=== PATIENT | male | born 1975 | race Caucasian/White ===

== ENCOUNTER 2018-03-15 21:34 | Emergency (ER) | payer OTHER ==
--- NOTE | 2018-03-15 22:38 | RAD ---
CHEST ONE VIEW: 03/15/18 HISTORY: Dyspnea. FINDINGS: Dextroscoliosis of the thoracic vertebral column. Heart size is normal. The lungs are clear. IMPRESSION: No acute intrathoracic disease. Thoracic spine scoliosis. POS: [facility]
== END 2018-03-15 23:15 | disposition home or self-care (01) ==
LOC: MADERS 21:34
DX: J11.1 Influenza due to unidentified influenza virus with other respiratory manifestations (principal); B34.9 Viral infection, unspecified; E11.9 Type 2 diabetes mellitus without complications; Z79.84 Long term (current) use of oral hypoglycemic drugs
CPT/HCPCS: 71045; 87804; 93005

== ENCOUNTER 2018-06-10 14:08 | Outpatient (CLI) | payer OTHER ==
--- NOTE | 2018-06-10 14:24 | RAD ---
Exam: Chest 2 views: HISTORY: Cough for 4 months COMPARISON: 03/15/2018 FINDINGS: Stable scoliosis. Heart size is normal. The lungs are clear. IMPRESSION: No acute intrathoracic disease. Stable from prior study.
== END 2018-06-10 14:09 | disposition home or self-care (01) ==
LOC: MADRAD 14:08
PROVIDERS: ATTEND Physician Assistant
DX: R05 Cough (principal)
CPT/HCPCS: 71046

== ENCOUNTER 2019-08-25 11:06 | Outpatient (CLI) | payer OTHER ==
--- NOTE | 2019-08-25 11:27 | RAD ---
EXAM: Chest 2 views: HISTORY: Cough for 2 years COMPARISON: 06/10/2018 FINDINGS: There is a normal-sized cardiomediastinal silhouette. There is no evidence of consolidation, mass, or pleural effusion. There is scoliotic curvature the spine. IMPRESSION: No evidence of acute cardiopulmonary disease
== END 2019-08-25 11:07 | disposition home or self-care (01) ==
LOC: MADRAD 11:06
PROVIDERS: ATTEND Physician Assistant
DX: R05 Cough (principal)
CPT/HCPCS: 71046

== ENCOUNTER 2019-11-19 12:08 | Emergency (ER) | payer OTHER ==
[2019-11-19 13:08] LABS: #Basophils 0.2 thou/uL (0.0-0.2); #Eosinphils 0.5 thou/uL (0.0-0.7); #Lymphocytes 1.3 thou/uL (1.20-3.40); #Monocytes 0.6 thou/uL (0.11-0.59); #Neutrophils 9.2 thou/uL (1.40-6.50); %Basophils 1.4 % (0.0-1.0); %Eosinophils 4.4 % (0.0-10.0); %Lymphocytes 11.3 % (21.0-51.0); %Monocytes 5.2 % (0.0-10.0); %Neutrophils 77.8 % (42.0-75.0); Hemoglobin 15.6 g/dL (14.0-18.0); Mean Corpuscular Volume 87.4 fL (78.0-98.0); Platelet Count 277 thou/uL (130-400); RBC Distribution Width 11.8 % (11.5-14.5); Red Blood Cell (RBC) Count 5.56 mill/uL (4.70-6.10); White Blood Cell (WBC) Count 11.8 thou/uL (4.8-10.8)
--- NOTE | 2019-11-19 13:19 | RAD ---
PORTABLE CHEST: Date: 11/19/2019 Time: 1303 hours HISTORY: Cough. FINDINGS: Comparison made with exam of 08/25/2019. The heart size is normal. The lungs are expanded without focal areas of consolidation, pneumothoraces , or pleural effusions. Scoliosis of the spine is again seen. IMPRESSION: No radiographic evidence of acute cardiopulmonary process. POS: [facility]
[2019-11-19 13:34] LABS: ALT (SGPT) 23 U/L (8-55); AST (SGOT) 14 U/L (5-34); Albumin 3.9 g/dL (3.5-5.0); Alkaline Phosphatase 66 U/L (40-110); Anion Gap 19 mmol/L (10-20); BUN (Urea Nitrogen) 18 mg/dL (8.9-20.6); Bilirubin, Total 0.9 mg/dL (0.2-1.2); CK (CPK) 198 U/L (30-200); Calc. Creatinine Clearance 0 mL/min (70-130); Calcium 9.1 mg/dL (7.8-10.44); Carbon Dioxide 25 mmol/L (22-29); Chloride 97 mmol/L (98-107); Estimated GFR-MDRD 56; Globulin 2.5 g/dL (2.4-3.5); Glucose 522 mg/dL (70-105); Potassium 4.6 mmol/L (3.5-5.1); Protein, Total 6.4 g/dL (6.0-8.3); Sodium 136 mmol/L (136-145)
[2019-11-19 13:35] LABS: CKMB 6.1 ng/mL (0-6.6)
[2019-11-19] MEDS ORDERED: Sodium Chloride 0.9% 1,000 ML ONE (13:50)
[2019-11-19] MEDS ORDERED: cefTRIAXone\\ROCEPHIN 2 GM VIAL ONE (13:50)
[2019-11-19] MEDS ORDERED: Sodium Chloride 0.9% 100 ML ONE (13:51)
[2019-11-19] MEDS ORDERED: Insulin Regular 300 UNITS/3 ML VIAL ONE (14:02)
== END 2019-11-19 15:22 | disposition short-term general hospital (02) ==
LOC: MADERS 12:08
DX: J40 Bronchitis, not specified as acute or chronic (principal); E11.65 Type 2 diabetes mellitus with hyperglycemia; I25.10 Atherosclerotic heart disease of native coronary artery without angina pectoris; R00.0 Tachycardia, unspecified; E78.5 Hyperlipidemia, unspecified; E78.00 Pure hypercholesterolemia, unspecified; Z79.84 Long term (current) use of oral hypoglycemic drugs; Z79.899 Other long term (current) drug therapy
CPT/HCPCS: 36416; 71045; 80053; 82550; 82553; 83880; 84443; 84484; 85025; 85379; 93005; 94760; 96365; 96375; J0696; J1815; J3490; J7050

== ENCOUNTER 2021-08-30 | Emergency (ER) | payer SELFPAY | END 2021-08-30 00:34 | disposition left against medical advice (07) | LOC: MADERS → EEVIPCON → MADERS 00:34 | DX: A41.9 Sepsis, unspecified organism (principal); L03.114 Cellulitis of left upper limb; E11.9 Type 2 diabetes mellitus without complications; F17.220 Nicotine dependence, chewing tobacco, uncomplicated | CPT/HCPCS: 99284 ==

== ENCOUNTER 2021-10-04 23:22 | Emergency (ER) | payer SELFPAY | END 2021-10-04 23:53 | disposition home or self-care (01) | LOC: MADERS 23:22 | DX: Z48.817 Encounter for surgical aftercare following surgery on the skin and subcutaneous tissue (principal); E11.9 Type 2 diabetes mellitus without complications; F17.220 Nicotine dependence, chewing tobacco, uncomplicated; I70.90 Unspecified atherosclerosis ==

== ENCOUNTER 2022-08-18 00:54 | Emergency (ER) | payer OTHER, SELFPAY ==
[2022-08-18] MEDS ORDERED: Furosemide 40 MG/4 ML VIAL ONE (01:41)
[2022-08-18 01:43] LABS: #Basophils 0.1 thou/uL (0.0-0.2); #Eosinphils 0.5 thou/uL (0.0-0.7); #Lymphocytes 1.6 thou/uL (1.20-3.40); #Monocytes 0.9 thou/uL (0.11-0.59); #Neutrophils 5.1 thou/uL (1.40-6.50); %Basophils 1.2 % (0.0-1.0); %Eosinophils 6.4 % (0.0-10.0); %Monocytes 10.5 % (0.0-10.0); %Neutrophils 61.9 % (42.0-75.0); Hemoglobin 13.9 g/dL (14.0-18.0); Mean Corpuscular HGB CONC 30.4 g/dL (32.0-36.0); Mean Corpuscular Hemoglobin 27.9 pg (27.0-31.0); Mean Corpuscular Volume 91.8 fl (78.0-98.0); Mean Platelet Volume 8.7 fL (7.4-10.4); Platelet Count 227 10x3/uL (130-400); RBC Distribution Width 15.8 % (11.5-14.5); Red Blood Cell (RBC) Count 4.98 mill/uL (4.70-6.10); White Blood Cell (WBC) Count 8.1 10x3/uL (4.8-10.8)
[2022-08-18 01:55] LABS: INR-International Normal Ratio 1.2; Prothrombin Time 15.2 sec (12.0-14.7)
[2022-08-18 02:05] LABS: ALT (SGPT) 27 U/L (8-55); AST (SGOT) 28 U/L (5-34); Albumin 3.7 g/dL (3.5-5.0); Alkaline Phosphatase 166 U/L (40-110); Anion Gap 15 mmol/L (10-20); BUN (Urea Nitrogen) 20 mg/dL (8.9-20.6); Bilirubin, Total 1.1 mg/dL (0.2-1.2); Calc. Creatinine Clearance 0 mL/min (70-130); Carbon Dioxide 26 mmol/L (22-29); Chloride 103 mmol/L (98-107); Estimated GFR 78; Globulin 2.7 g/dL (2.4-3.5); Glucose 286 mg/dL (70-105); PTT 29.5 sec (22.9-36.1); Potassium 4.3 mmol/L (3.5-5.1); Protein, Total 6.4 g/dL (6.0-8.3); Sodium 140 mmol/L (136-145)
[2022-08-18 02:29] LABS: CKMB 6.3 ng/mL (0-6.6)
[2022-08-18] MEDS ORDERED: Aspirin Chewable 81 MG TAB ONE (04:38)
[2022-08-18 05:24] LABS: Amphetamine Not Detected (NotDetected); Barbiturates Screen Not Detected (NotDetected); Benzodiazepine Screen Not Detected (NotDetected); Cocaine Metabolite Screen Not Detected (NotDetected); Methadone Not Detected (NotDetected); Methamphetamine Not Detected (NotDetected); Opiate Screen Not Detected (NotDetected); Oxycodone Screen Not Detected (NotDetected); Phencyclidine (PCP) Not Detected (NotDetected); THC/Cannabinoid Screen Not Detected (NotDetected); Tricyclic Screen Not Detected (NotDetected)
== END 2022-08-18 05:19 | disposition short-term general hospital (02) ==
LOC: MADERS 00:54
DX: I50.9 Heart failure, unspecified (principal); R79.89 Other specified abnormal findings of blood chemistry; E11.9 Type 2 diabetes mellitus without complications; F17.220 Nicotine dependence, chewing tobacco, uncomplicated
CPT/HCPCS: 71045; 80053; 80306; 82553; 83880; 84484; 85025; 85610; 85730; 93005; 96374; J1940

== ENCOUNTER 2023-10-19 17:49 | Emergency (ER) | payer OTHER ==
[2023-10-19] MEDS ORDERED: Sodium Chloride 0.9% 1,000 ML ONE (18:32)
[2023-10-19] MEDS ORDERED: Insulin Regular, Human 100 UNIT/ML 10 ML VIAL ONE (18:33)
[2023-10-19 18:40] LABS: #Basophils 0.2 thou/uL (0.0-0.2); #Eosinphils 1.3 thou/uL (0.0-0.7); #Lymphocytes 2.1 thou/uL (1.20-3.40); #Monocytes 0.7 thou/uL (0.11-0.59); #Neutrophils 4.7 thou/uL (1.40-6.50); %Basophils 1.8 % (0.0-1.0); %Eosinophils 14.8 % (0.0-10.0); %Lymphocytes 23.4 % (21.0-51.0); %Monocytes 7.9 % (0.0-10.0); %Neutrophils 52.2 % (42.0-75.0); Hematocrit 44.7 % (42.0-52.0); Hemoglobin 13.9 g/dL (14.0-18.0); Mean Corpuscular HGB CONC 31.1 g/dL (32.0-36.0); Mean Corpuscular Hemoglobin 27.4 pg (27.0-31.0); Mean Corpuscular Volume 87.9 fl (78.0-98.0); Mean Platelet Volume 8.9 fL (7.4-10.4); Platelet Count 198 10x3/uL (130-400); RBC Distribution Width 14.2 % (11.5-14.5); Red Blood Cell (RBC) Count 5.09 mill/uL (4.70-6.10)
[2023-10-19 18:44] LABS: INR-International Normal Ratio 1.4; Prothrombin Time 17.2 sec (12.0-14.7)
[2023-10-19 18:45] LABS: PTT 34.1 sec (22.9-36.1)
[2023-10-19] MEDS ORDERED: Morphine 4 MG/ML VIAL ONE ×2 (18:46→20:27)
[2023-10-19 18:55] LABS: Troponin I 0.179 ng/mL (< 0.028)
[2023-10-19 19:02] LABS: ALT (SGPT) 10 U/L (8-55); AST (SGOT) 11 U/L (5-34); Albumin 3.6 g/dL (3.5-5.0); Alkaline Phosphatase 130 U/L (40-110); Anion Gap 21 mmol/L (10-20); BUN (Urea Nitrogen) 15 mg/dL (8.9-20.6); Bilirubin, Total 0.4 mg/dL (0.2-1.2); Calc. Creatinine Clearance 0 mL/min (70-130); Calcium 8.9 mg/dL (7.8-10.44); Carbon Dioxide 21 mmol/L (22-29); Chloride 99 mmol/L (98-107); Estimated GFR 61; Globulin 2.8 g/dL (2.4-3.5); Magnesium 2.1 mg/dL (1.6-2.6); Potassium 4.8 mmol/L (3.5-5.1); Protein, Total 6.4 g/dL (6.0-8.3); Sodium 136 mmol/L (136-145)
[2023-10-19 19:04] LABS: Glucose 441 mg/dL (70-105)
[2023-10-19 19:13] LABS: SARS-CoV-2 E Target Negative; SARS-CoV-2 N2 Target Negative; SARS-CoV-2 NAA Rapid Test Not Detected (NotDetected); SARS-CoV-2 RdRP gene Negative
[2023-10-19 20:18] LABS: Bilirubin Negative (Negative); Blood, Urine Moderate (Negative); Clarity Clear (Clear); Glucose, Urine (Dipstick) 500 mg/dL (Negative); Ketone, Urine Trace mg/dL (Negative); Leukocyte Negative (Negative); Nitrite Negative (Negative); Protein, Urine (Dipstick) Negative (Neg-Trace); Specific Gravity, Urine 1.015 (1.005-1.030); Urobilinogen 0.2 mg/dL (Less than 2)
[2023-10-19] MEDS ORDERED: guaiFENesin ER 600 MG TAB ONE (20:19)
[2023-10-19 20:21] LABS: CAUTI Indications for Culture Pelvic or flank pain; Squamous Epithelial 0-3 HPF (0-3)
[2023-10-19 20:22] LABS: Urine Culture Reflex No No
== END 2023-10-19 21:03 | disposition home or self-care (01) ==
LOC: MADERS 17:49
DX: R06.02 Shortness of breath (principal); R05.9 Cough, unspecified; E11.65 Type 2 diabetes mellitus with hyperglycemia; I50.9 Heart failure, unspecified; F17.220 Nicotine dependence, chewing tobacco, uncomplicated; I25.10 Atherosclerotic heart disease of native coronary artery without angina pectoris; Z79.899 Other long term (current) drug therapy
CPT/HCPCS: 36416; 71046; 80053; 81001; 82010; 83735; 83880; 84484; 85025; 85610; 85730; 87804; 93005; 96374; 96375; 96376; J1815; J2272; J7030; U0002

== ENCOUNTER 2023-10-24 15:39 | Emergency (ER) | payer OTHER ==
[2023-10-24 16:16] LABS: #Basophils 0.2 thou/uL (0.0-0.2); #Eosinphils 1.4 thou/uL (0.0-0.7); #Lymphocytes 1.6 thou/uL (1.20-3.40); #Monocytes 1.4 thou/uL (0.11-0.59); #Neutrophils 7.9 thou/uL (1.40-6.50); %Basophils 1.3 % (0.0-1.0); %Lymphocytes 12.8 % (21.0-51.0); %Monocytes 11.4 % (0.0-10.0); %Neutrophils 63.5 % (42.0-75.0); Hematocrit 44.9 % (42.0-52.0); Hemoglobin 13.6 g/dL (14.0-18.0); Mean Corpuscular HGB CONC 30.2 g/dL (32.0-36.0); Mean Corpuscular Hemoglobin 26.7 pg (27.0-31.0); Mean Corpuscular Volume 88.6 fl (78.0-98.0); Mean Platelet Volume 8.3 fL (7.4-10.4); Platelet Count 181 10x3/uL (130-400); RBC Distribution Width 14.2 % (11.5-14.5); Red Blood Cell (RBC) Count 5.07 mill/uL (4.70-6.10); White Blood Cell (WBC) Count 12.4 10x3/uL (4.8-10.8)
[2023-10-24 16:26] LABS: INR-International Normal Ratio 1.4; Prothrombin Time 17.5 sec (12.0-14.7)
[2023-10-24 16:27] LABS: PTT 33.3 sec (22.9-36.1)
[2023-10-24 16:35] LABS: ALT (SGPT) 10 U/L (8-55); AST (SGOT) 12 U/L (5-34); Albumin 3.5 g/dL (3.5-5.0); Alkaline Phosphatase 108 U/L (40-110); Anion Gap 17 mmol/L (10-20); BUN (Urea Nitrogen) 10 mg/dL (8.9-20.6); Bilirubin, Total 0.5 mg/dL (0.2-1.2); Calc. Creatinine Clearance 0 mL/min (70-130); Calcium 9.3 mg/dL (7.8-10.44); Carbon Dioxide 25 mmol/L (22-29); Chloride 102 mmol/L (98-107); Estimated GFR 78; Globulin 2.9 g/dL (2.4-3.5); Glucose 321 mg/dL (70-105); Potassium 4.4 mmol/L (3.5-5.1); Protein, Total 6.4 g/dL (6.0-8.3); Sodium 140 mmol/L (136-145)
[2023-10-24 16:37] LABS: Troponin I 0.193 ng/mL (< 0.028)
[2023-10-24] MEDS ORDERED: Dexamethasone 4 MG TAB ONE (18:09)
[2023-10-24] MEDS ORDERED: Insulin Regular, Human 100 UNIT/ML 10 ML VIAL ONE (18:10)
== END 2023-10-24 18:20 | disposition home or self-care (01) ==
LOC: MADERS 15:39
DX: R06.02 Shortness of breath (principal); R05.9 Cough, unspecified; I25.10 Atherosclerotic heart disease of native coronary artery without angina pectoris; I11.0 Hypertensive heart disease with heart failure; I50.9 Heart failure, unspecified; E11.9 Type 2 diabetes mellitus without complications; F17.220 Nicotine dependence, chewing tobacco, uncomplicated; Z55.6 Problems related to health literacy; Z79.899 Other long term (current) drug therapy; Z79.01 Long term (current) use of anticoagulants; Z79.84 Long term (current) use of oral hypoglycemic drugs
CPT/HCPCS: 36415; 71045; 80053; 83880; 84484; 85025; 85610; 85730; 93005; J1815; J8540

== ENCOUNTER 2023-11-01 23:28 | Emergency (ER) | payer OTHER ==
[2023-11-02] MEDS ORDERED: Dexamethasone 10 MG/ML VIAL ONE
[2023-11-02] MEDS ORDERED: Ondansetron PF 4 MG/2 ML Vial ONE (00:01)
[2023-11-02] MEDS ORDERED: Morphine 4 MG/ML VIAL ONE (00:01)
[2023-11-02] MEDS ORDERED: Albuterol 2.5 MG (3 mL) NEB ONE ×2 (00:22)
[2023-11-02 00:24] LABS: #Basophils 0.3 thou/uL (0.0-0.2); #Eosinphils 1.4 thou/uL (0.0-0.7); #Monocytes 1.1 thou/uL (0.11-0.59); #Neutrophils 5.9 thou/uL (1.40-6.50); %Basophils 2.2 % (0.0-1.0); %Eosinophils 12.1 % (0.0-10.0); %Lymphocytes 25.4 % (21.0-51.0); %Monocytes 9.4 % (0.0-10.0); %Neutrophils 50.8 % (42.0-75.0); Hematocrit 42.5 % (42.0-52.0); Hemoglobin 13.2 g/dL (14.0-18.0); Mean Corpuscular HGB CONC 31.1 g/dL (32.0-36.0); Mean Corpuscular Hemoglobin 27.5 pg (27.0-31.0); Mean Corpuscular Volume 88.7 fl (78.0-98.0); Mean Platelet Volume 9.1 fL (7.4-10.4); Platelet Count 283 10x3/uL (130-400); White Blood Cell (WBC) Count 11.6 10x3/uL (4.8-10.8)
[2023-11-02 00:46] LABS: ALT (SGPT) 11 U/L (8-55); AST (SGOT) 8 U/L (5-34); Albumin 3.2 g/dL (3.5-5.0); Alkaline Phosphatase 142 U/L (40-110); Anion Gap 17 mmol/L (10-20); BUN (Urea Nitrogen) 17 mg/dL (8.9-20.6); Bilirubin, Total 0.4 mg/dL (0.2-1.2); Calc. Creatinine Clearance 0 mL/min (70-130); Calcium 8.5 mg/dL (7.8-10.44); Carbon Dioxide 27 mmol/L (22-29); Chloride 93 mmol/L (98-107); Estimated GFR 52; Globulin 2.8 g/dL (2.4-3.5); Potassium 4.7 mmol/L (3.5-5.1); Sodium 132 mmol/L (136-145)
[2023-11-02 00:50] LABS: Critical Call Chem Troponin I NUR.KKM @ 0049; Critical Call Chemistry NUR.KKM @ 0049; Glucose 530 mg/dL (70-105); Troponin I 0.241 ng/mL (< 0.028)
[2023-11-02] MEDS ORDERED: Insulin Regular, Human 100 UNIT/ML 10 ML VIAL ONE (01:10)
[2023-11-02 01:18] LABS: SARS-CoV-2 E Target Negative; SARS-CoV-2 N2 Target Negative; SARS-CoV-2 NAA Rapid Test Not Detected (NotDetected); SARS-CoV-2 RdRP gene Negative
[2023-11-02] MEDS ORDERED: cefTRIAXone (ROCEPHIN) 1 GM VIAL ONE (03:06)
== END 2023-11-02 04:27 | disposition short-term general hospital (02) ==
LOC: MADERS 23:28
DX: J18.9 Pneumonia, unspecified organism (principal); E86.0 Dehydration; N17.9 Acute kidney failure, unspecified; E11.65 Type 2 diabetes mellitus with hyperglycemia; F17.220 Nicotine dependence, chewing tobacco, uncomplicated; I25.10 Atherosclerotic heart disease of native coronary artery without angina pectoris; R79.89 Other specified abnormal findings of blood chemistry
CPT/HCPCS: 71045; 80053; 83605; 83880; 84484; 85025; 87804; 93005; 96374; 96375; J0696; J1100; J1815; J2272; J2405; J7611; U0002

== ENCOUNTER 2023-11-15 13:49 | Emergency (ER) | payer OTHER ==
[2023-11-15] MEDS ORDERED: Acetaminophen 325 MG TAB ONE (14:25)
== END 2023-11-15 15:23 | disposition home or self-care (01) ==
LOC: MADERS 13:49
DX: R05.9 Cough, unspecified (principal); E11.9 Type 2 diabetes mellitus without complications; F17.220 Nicotine dependence, chewing tobacco, uncomplicated; F17.200 Nicotine dependence, unspecified, uncomplicated
CPT/HCPCS: 71046; 87426; 99283

== ENCOUNTER 2024-01-26 17:55 | Emergency (ER) | payer OTHER ==
[~2024-01-26 17:55] MED LIST: Iopamidol 370 76% 100 ML VIAL ONE
[2024-01-26 18:41] LABS: Hematocrit 43.2 % (42.0-52.0); Hemoglobin 13.7 g/dL (14.0-18.0); Mean Corpuscular HGB CONC 31.7 g/dL (32.0-36.0); Mean Corpuscular Hemoglobin 28.1 pg (27.0-31.0); Mean Corpuscular Volume 88.8 fl (78.0-98.0); Mean Platelet Volume 8.9 fL (7.4-10.4); Platelet Count 213 10x3/uL (130-400); RBC Distribution Width 13.6 % (11.5-14.5); Red Blood Cell (RBC) Count 4.86 mill/uL (4.70-6.10); White Blood Cell (WBC) Count 7.7 10x3/uL (4.8-10.8)
[2024-01-26 18:43] LABS: INR-International Normal Ratio 1.1; Prothrombin Time 14.2 sec (12.0-14.7)
[2024-01-26 18:44] LABS: PTT 31.9 sec (22.9-36.1)
[2024-01-26 18:46] LABS: D-Dimer Test 0.83 mcg/mL (0.27-0.43)
[2024-01-26 18:51] LABS: ALT (SGPT) 16 U/L (8-55); AST (SGOT) 16 U/L (5-34); Alkaline Phosphatase 84 U/L (40-110); Anion Gap 16 mmol/L (10-20); BUN (Urea Nitrogen) 19 mg/dL (8.9-20.6); Bilirubin, Total 1.1 mg/dL (0.2-1.2); Calc. Creatinine Clearance 0 mL/min (70-130); Carbon Dioxide 29 mmol/L (22-29); Chloride 98 mmol/L (98-107); Eosinophils 17 % (0-10); Estimated GFR 71; Globulin 3.2 g/dL (2.4-3.5); Glucose 259 mg/dL (70-105); Lymphocytes 16 % (21-51); MDiff Complete? YES; Manual Diff?? YES; Monocytes 3 % (0-10); Neutrophil 54 % (42-75); Potassium 4.2 mmol/L (3.5-5.1); Protein, Total 7.2 g/dL (6.0-8.3); Reactive Lymphocytes 10 % (0-10); Sodium 139 mmol/L (136-145)
[2024-01-26 18:52] LABS: Platelet Adequacy Comment Appears Adequate
[2024-01-26 18:57] LABS: Critical Call Chem Troponin I NUR.AID@1856; Troponin I 0.224 ng/mL (< 0.028)
[2024-01-26] MEDS ORDERED: Acetaminophen 500 MG TAB ONE (18:57)
[2024-01-26] MEDS ORDERED: Morphine 4 MG/ML VIAL ONE (18:59)
[2024-01-26 20:29] LABS: Critical Call Chem Troponin I NUR.AID @ 2029; Troponin I 0.202 ng/mL (< 0.028)
[2024-01-26 20:30] LABS: Bilirubin Negative (Negative); Blood, Urine Negative (Negative); Clarity Clear (Clear); Glucose, Urine (Dipstick) 500 mg/dL (Negative); Ketone, Urine Trace mg/dL (Negative); Leukocyte Negative (Negative); Nitrite Negative (Negative); Protein, Urine (Dipstick) 30 mg/dL (Neg-Trace); Specific Gravity, Urine 1.015 (1.005-1.030); Urobilinogen 0.2 mg/dL (Less than 2); pH, Urine 7.5 (5.0-9.0)
[2024-01-26 20:32] LABS: CAUTI Indications for Culture Dysuria,urgency,freq; RBC/HPF None Seen HPF (0-3); Squamous Epithelial 0-3 HPF (0-3)
[2024-01-26 20:33] LABS: Urine Culture Reflex Yes Yes
[2024-01-26] MEDS ORDERED: Morphine 2 MG/ML VIAL ONE (21:25)
[2024-01-26 21:42] LABS: Amphetamine Not Detected (NotDetected); Barbiturates Screen Not Detected (NotDetected); Benzodiazepine Screen Detected (NotDetected); Cocaine Metabolite Screen Not Detected (NotDetected); Methadone Not Detected (NotDetected); Methamphetamine Not Detected (NotDetected); Opiate Screen Detected (NotDetected); Oxycodone Screen Not Detected (NotDetected); Phencyclidine (PCP) Not Detected (NotDetected); THC/Cannabinoid Screen Not Detected (NotDetected); Tricyclic Screen Not Detected (NotDetected)
== END 2024-01-26 21:54 | disposition home or self-care (01) ==
LOC: MADERS 17:55
DX: R55 Syncope and collapse (principal); S42.031A Displaced fracture of lateral end of right clavicle, initial encounter for closed fracture; I25.10 Atherosclerotic heart disease of native coronary artery without angina pectoris; E11.9 Type 2 diabetes mellitus without complications; I50.9 Heart failure, unspecified; F17.220 Nicotine dependence, chewing tobacco, uncomplicated; W18.30XA Fall on same level, unspecified, initial encounter; Z55.6 Problems related to health literacy
CPT/HCPCS: 36415; 70450; 71275; 74176; 80053; 80306; 81001; 84484; 85025; 85379; 85610; 85730; 87086; 93005; 96372; 96374; J2272; Q9967

== ENCOUNTER 2024-10-22 01:07 | Emergency (ER) | payer OTHER, SELFPAY ==
[2024-10-22 02:03] LABS: #Basophils 0.2 thou/uL (0.0-0.2); #Eosinophils 0.9 thou/uL (0.0-0.7); #Lymphocytes 2.1 thou/uL (1.20-3.40); #Monocytes 0.6 thou/uL (0.11-0.59); #Neutrophils 3.2 thou/uL (1.40-6.50); %Basophils 2.6 % (0.0-1.0); %Eosinophils 13.4 % (0.0-10.0); %Lymphocytes 30.0 % (21.0-51.0); %Monocytes 9.0 % (0.0-10.0); %Neutrophils 45.0 % (42.0-75.0); Hematocrit 42.2 % (42.0-52.0); Hemoglobin 13.4 g/dL (14.0-18.0); Mean Corpuscular Hemoglobin 27.8 pg (27.0-31.0); Mean Corpuscular Volume 87.7 fl (78.0-98.0); Platelet Count 238 10x3/uL (130-400); Red Blood Cell (RBC) Count 4.81 mill/uL (4.70-6.10); White Blood Cell (WBC) Count 7.1 10x3/uL (4.8-10.8)
[2024-10-22] MEDS ORDERED: Benzonatate 100 MG CAP ONE (02:15)
[2024-10-22] MEDS ORDERED: Azithromycin 250 MG TAB ONE (02:15)
[2024-10-22 02:16] LABS: INR-International Normal Ratio 1.6; Prothrombin Time 19.1 sec (12.0-14.7)
[2024-10-22 02:17] LABS: PTT 43.5 sec (22.9-36.1)
[2024-10-22 02:22] LABS: Troponin I 0.054 ng/mL (< 0.028)
[2024-10-22 02:24] LABS: ALT (SGPT) 16 U/L (Less than 45); AST (SGOT) 16 U/L (11-34); Albumin 4.1 g/dL (3.1-4.5); Alkaline Phosphatase 69 U/L (40-110); Anion Gap 15 mmol/L (10-20); BUN (Urea Nitrogen) 15 mg/dL (8.9-20.6); Bilirubin, Total 0.6 mg/dL (0.3-1.2); Calc. Creatinine Clearance 0 mL/min (70-130); Calcium 8.7 mg/dL (7.8-10.44); Carbon Dioxide 26 mmol/L (22-29); Chloride 107 mmol/L (98-107); Globulin 2.6 g/dL (2.4-3.5); Glucose 200 mg/dL (70-105); Potassium 4.1 mmol/L (3.5-5.1); Sodium 144 mmol/L (136-145)
[2024-10-22] MEDS ORDERED: Iopamidol 370 76% 100 ML VIAL ONE (09:00)
== END 2024-10-22 03:55 | disposition home or self-care (01) ==
LOC: MADERS 01:07
DX: A37.00 Whooping cough due to Bordetella pertussis without pneumonia (principal); R04.2 Hemoptysis; I50.9 Heart failure, unspecified; I25.10 Atherosclerotic heart disease of native coronary artery without angina pectoris; E11.9 Type 2 diabetes mellitus without complications; F17.220 Nicotine dependence, chewing tobacco, uncomplicated; Z95.811 Presence of heart assist device; Z95.5 Presence of coronary angioplasty implant and graft; Z79.51 Long term (current) use of inhaled steroids; Z79.01 Long term (current) use of anticoagulants; Z79.84 Long term (current) use of oral hypoglycemic drugs; Z79.02 Long term (current) use of antithrombotics/antiplatelets
CPT/HCPCS: 71045; 71275; 80053; 84484; 85025; 85610; 85730; 93005; 96374; 96376; J2270; J7620; Q9967

== ENCOUNTER 2024-10-24 18:52 | Emergency (ER) | payer OTHER ==
[2024-10-24 19:24] LABS: #Basophils 0.2 thou/uL (0.0-0.2); #Eosinophils 1.0 thou/uL (0.0-0.7); #Lymphocytes 2.2 thou/uL (1.20-3.40); #Monocytes 0.5 thou/uL (0.11-0.59); #Neutrophils 2.8 thou/uL (1.40-6.50); %Basophils 2.3 % (0.0-1.0); %Eosinophils 15.6 % (0.0-10.0); %Lymphocytes 33.0 % (21.0-51.0); %Monocytes 7.8 % (0.0-10.0); %Neutrophils 41.3 % (42.0-75.0); Hematocrit 41.8 % (42.0-52.0); Hemoglobin 13.9 g/dL (14.0-18.0); Mean Corpuscular Hemoglobin 28.5 pg (27.0-31.0); Mean Corpuscular Volume 85.9 fl (78.0-98.0); Platelet Count 253 10x3/uL (130-400); Red Blood Cell (RBC) Count 4.87 mill/uL (4.70-6.10); White Blood Cell (WBC) Count 6.7 10x3/uL (4.8-10.8)
[2024-10-24 19:36] LABS: INR-International Normal Ratio 1.4; Prothrombin Time 17.4 sec (12.0-14.7)
[2024-10-24 19:37] LABS: PTT 43.0 sec (22.9-36.1)
[2024-10-24 19:47] LABS: ALT (SGPT) 15 U/L (Less than 45); AST (SGOT) 23 U/L (11-34); Albumin 4.0 g/dL (3.1-4.5); Alkaline Phosphatase 63 U/L (40-110); Anion Gap 14 mmol/L (10-20); BUN (Urea Nitrogen) 9 mg/dL (8.9-20.6); Bilirubin, Total 1.1 mg/dL (0.3-1.2); Calc. Creatinine Clearance 0 mL/min (70-130); Calcium 8.5 mg/dL (7.8-10.44); Carbon Dioxide 26 mmol/L (22-29); Chloride 104 mmol/L (98-107); Globulin 2.7 g/dL (2.4-3.5); Glucose 170 mg/dL (70-105); Potassium 3.7 mmol/L (3.5-5.1); Sodium 140 mmol/L (136-145); Troponin I 0.077 ng/mL (< 0.028)
[2024-10-24] MEDS ORDERED: HYDROcodone/Acetaminophen 5/325 mg Tablet ONE (20:04)
[2024-10-24] MEDS ORDERED: Benzonatate 100 MG CAP ONE (20:05)
== END 2024-10-24 21:47 | disposition short-term general hospital (02) ==
LOC: MADERS 18:52
DX: T82.598A Other mechanical complication of other cardiac and vascular devices and implants, initial encounter (principal); R05.3 Chronic cough; R79.89 Other specified abnormal findings of blood chemistry; I25.10 Atherosclerotic heart disease of native coronary artery without angina pectoris; I50.9 Heart failure, unspecified; E11.9 Type 2 diabetes mellitus without complications; I25.2 Old myocardial infarction; F17.220 Nicotine dependence, chewing tobacco, uncomplicated; I50.20 Unspecified systolic (congestive) heart failure; Z79.51 Long term (current) use of inhaled steroids; Z79.01 Long term (current) use of anticoagulants; Z79.02 Long term (current) use of antithrombotics/antiplatelets; Z79.899 Other long term (current) drug therapy
CPT/HCPCS: 80053; 84484; 85025; 85610; 85730; 93005; J7620

== ENCOUNTER 2024-11-13 22:37 | Emergency (ER) | payer OTHER ==
[2024-11-13 23:45] LABS: #Basophils 0.1 thou/uL (0.0-0.2); #Eosinophils 0.4 thou/uL (0.0-0.7); #Lymphocytes 1.3 thou/uL (1.20-3.40); #Monocytes 0.7 thou/uL (0.11-0.59); #Neutrophils 5.3 thou/uL (1.40-6.50); %Basophils 1.1 % (0.0-1.0); %Eosinophils 4.9 % (0.0-10.0); %Lymphocytes 16.9 % (21.0-51.0); %Monocytes 9.0 % (0.0-10.0); %Neutrophils 68.1 % (42.0-75.0); Hematocrit 31.7 % (42.0-52.0); Hemoglobin 10.2 g/dL (14.0-18.0); Mean Corpuscular Hemoglobin 28.2 pg (27.0-31.0); Mean Corpuscular Volume 87.9 fl (78.0-98.0); Platelet Count 296 10x3/uL (130-400); Red Blood Cell (RBC) Count 3.60 mill/uL (4.70-6.10); White Blood Cell (WBC) Count 7.8 10x3/uL (4.8-10.8)
[2024-11-14 00:04] LABS: Bacteria/HPF Rare-Few HPF (None Seen); CAUTI Indications for Culture Dysuria,urgency,freq; Glucose, Urine (Dipstick) 250 mg/dL (Negative); Leukocyte Negative (Negative); Protein, Urine (Dipstick) Negative (Neg-Trace); Specific Gravity, Urine 1.015 (1.005-1.030); WBC/HPF 0-3 HPF (0-3)
[2024-11-14 00:04] LABS: ALT (SGPT) 27 U/L (Less than 45); AST (SGOT) 21 U/L (11-34); Albumin 3.5 g/dL (3.1-4.5); Alkaline Phosphatase 70 U/L (40-110); Anion Gap 15 mmol/L (10-20); BUN (Urea Nitrogen) 16 mg/dL (8.9-20.6); Bilirubin, Total 0.5 mg/dL (0.3-1.2); Calc. Creatinine Clearance 0 mL/min (70-130); Calcium 8.4 mg/dL (7.8-10.44); Carbon Dioxide 25 mmol/L (22-29); Chloride 107 mmol/L (98-107); Globulin 2.7 g/dL (2.4-3.5); Glucose 260 mg/dL (70-105); Potassium 4.1 mmol/L (3.5-5.1); Sodium 143 mmol/L (136-145); Troponin I 0.199 ng/mL (< 0.028)
[2024-11-14 00:05] LABS: Urine Culture Reflex No No
[2024-11-14] MEDS ORDERED: HYDROcodone/Acetaminophen 10/325 mg Tablet ONE (04:32)
== END 2024-11-14 05:41 | disposition short-term general hospital (02) ==
LOC: MADERS 22:37
DX: T82.118A Breakdown (mechanical) of other cardiac electronic device, initial encounter (principal); E11.9 Type 2 diabetes mellitus without complications; I50.9 Heart failure, unspecified; F17.220 Nicotine dependence, chewing tobacco, uncomplicated
CPT/HCPCS: 80053; 81001; 84484; 85025; 99284

== ENCOUNTER 2024-12-20 11:34 | Emergency (ER) | payer OTHER, SELFPAY ==
[2024-12-20] MEDS ORDERED: Dexamethasone 10 MG/ML VIAL ONE (12:13)
[2024-12-20 12:27] LABS: Anisocytosis SLIGHT = 6-15 cells (100X) (0-5/hpf); Hematocrit 40.2 % (42.0-52.0); Hemoglobin 11.6 g/dL (14.0-18.0); MDiff Complete? YES; Mean Corpuscular Hemoglobin 26.2 pg (27.0-31.0); Mean Corpuscular Volume 90.9 fl (78.0-98.0); Platelet Adequacy Comment Appears Adequate; Platelet Count 394 10x3/uL (130-400); Red Blood Cell (RBC) Count 4.42 mill/uL (4.70-6.10); White Blood Cell (WBC) Count 9.1 10x3/uL (4.8-10.8)
[2024-12-20 12:32] LABS: ALT (SGPT) 12 U/L (Less than 45); AST (SGOT) 24 U/L (11-34); Albumin 4.1 g/dL (3.1-4.5); Alkaline Phosphatase 112 U/L (40-110); Anion Gap 19 mmol/L (10-20); BUN (Urea Nitrogen) 24 mg/dL (8.9-20.6); Bilirubin, Total 0.6 mg/dL (0.3-1.2); Calc. Creatinine Clearance 0 mL/min (70-130); Calcium 9.5 mg/dL (7.8-10.44); Carbon Dioxide 27 mmol/L (22-29); Chloride 100 mmol/L (98-107); Globulin 3.9 g/dL (2.4-3.5); Glucose 125 mg/dL (70-105); Potassium 4.1 mmol/L (3.5-5.1); Sodium 142 mmol/L (136-145)
[2024-12-20] MEDS ORDERED: HYDROcodone/Acetaminophen 5/325 mg Tablet ONE ×2 (13:05→13:50)
== END 2024-12-20 13:58 | disposition home or self-care (01) ==
LOC: MADERS 11:34
DX: R06.02 Shortness of breath (principal); E11.9 Type 2 diabetes mellitus without complications; I50.9 Heart failure, unspecified; F17.220 Nicotine dependence, chewing tobacco, uncomplicated
CPT/HCPCS: 36415; 71046; 71275; 80053; 83880; 85025; 85379; 93005; 96374; J1100; Q9967

== ENCOUNTER 2025-01-07 01:56 | Emergency (ER) | payer SELFPAY ==
[2025-01-07] MEDS ORDERED: Acetaminophen 500 MG TAB ONE (02:32)
[2025-01-07 02:41] LABS: #Basophils 0.2 thou/uL (0.0-0.2); #Eosinophils 1.3 thou/uL (0.0-0.7); #Lymphocytes 2.0 thou/uL (1.20-3.40); #Monocytes 0.7 thou/uL (0.11-0.59); #Neutrophils 5.5 thou/uL (1.40-6.50); %Basophils 1.7 % (0.0-1.0); %Eosinophils 13.4 % (0.0-10.0); %Lymphocytes 20.3 % (21.0-51.0); %Monocytes 7.6 % (0.0-10.0); %Neutrophils 57.1 % (42.0-75.0); Anisocytosis SLIGHT = 6-15 cells (100X) (0-5/hpf); Hematocrit 49.0 % (42.0-52.0); Hemoglobin 14.1 g/dL (14.0-18.0); MDiff Complete? YES; Mean Corpuscular Hemoglobin 24.2 pg (27.0-31.0); Mean Corpuscular Volume 84.0 fl (78.0-98.0); Platelet Count 375 10x3/uL (130-400); Red Blood Cell (RBC) Count 5.83 mill/uL (4.70-6.10); White Blood Cell (WBC) Count 9.6 10x3/uL (4.8-10.8)
[2025-01-07 02:46] LABS: ALT (SGPT) 10 U/L (Less than 45); AST (SGOT) 21 U/L (11-34); Albumin 4.2 g/dL (3.1-4.5); Alkaline Phosphatase 135 U/L (40-110); Anion Gap 21 mmol/L (10-20); BUN (Urea Nitrogen) 11 mg/dL (8.9-20.6); Bilirubin, Total 0.9 mg/dL (0.3-1.2); Calc. Creatinine Clearance 0 mL/min (70-130); Calcium 9.8 mg/dL (7.8-10.44); Carbon Dioxide 24 mmol/L (22-29); Chloride 98 mmol/L (98-107); Globulin 3.7 g/dL (2.4-3.5); Glucose 137 mg/dL (70-105); Potassium 3.2 mmol/L (3.5-5.1); Sodium 140 mmol/L (136-145); Troponin I 0.119 ng/mL (< 0.028)
[2025-01-07 05:25] LABS: Troponin I 0.114 ng/mL (< 0.028)
== END 2025-01-07 06:20 | disposition home or self-care (01) ==
LOC: MADERS 01:56
DX: G47.00 Insomnia, unspecified (principal); F11.23 Opioid dependence with withdrawal; F41.9 Anxiety disorder, unspecified; E11.9 Type 2 diabetes mellitus without complications; I25.10 Atherosclerotic heart disease of native coronary artery without angina pectoris; I50.9 Heart failure, unspecified; F17.220 Nicotine dependence, chewing tobacco, uncomplicated; Z95.5 Presence of coronary angioplasty implant and graft
CPT/HCPCS: 36415; 80053; 84484; 85025; 93005; 96374; 96375; 96376; J2060; J2270; J2272; J7030

== ENCOUNTER 2025-01-14 22:04 | Emergency (ER) | payer SELFPAY ==
[2025-01-14] MEDS ORDERED: Dexamethasone 10 MG/ML VIAL ONE (22:57)
[2025-01-14 23:23] LABS: #Basophils 0.2 thou/uL (0.0-0.2); #Eosinophils 1.7 thou/uL (0.0-0.7); #Lymphocytes 1.5 thou/uL (1.20-3.40); #Monocytes 0.9 thou/uL (0.11-0.59); #Neutrophils 4.7 thou/uL (1.40-6.50); %Basophils 2.1 % (0.0-1.0); %Eosinophils 18.5 % (0.0-10.0); %Lymphocytes 16.5 % (21.0-51.0); %Monocytes 10.3 % (0.0-10.0); %Neutrophils 52.6 % (42.0-75.0); Anisocytosis SLIGHT = 6-15 cells (100X) (0-5/hpf); Hematocrit 39.8 % (42.0-52.0); Hemoglobin 12.2 g/dL (14.0-18.0); MDiff Complete? YES; Mean Corpuscular Hemoglobin 25.0 pg (27.0-31.0); Mean Corpuscular Volume 81.5 fl (78.0-98.0); Microcytosis SLIGHT = 6-15 cells (100X) (0-5/hpf); Platelet Count 358 10x3/uL (130-400); Red Blood Cell (RBC) Count 4.88 mill/uL (4.70-6.10); White Blood Cell (WBC) Count 9.0 10x3/uL (4.8-10.8)
[2025-01-14 23:30] LABS: ALT (SGPT) 8 U/L (Less than 45); AST (SGOT) 14 U/L (11-34); Albumin 3.8 g/dL (3.1-4.5); Alkaline Phosphatase 123 U/L (40-110); Anion Gap 18 mmol/L (10-20); BUN (Urea Nitrogen) 18 mg/dL (8.9-20.6); Bilirubin, Total 0.3 mg/dL (0.3-1.2); Calc. Creatinine Clearance 0 mL/min (70-130); Calcium 9.1 mg/dL (7.8-10.44); Carbon Dioxide 30 mmol/L (22-29); Chloride 93 mmol/L (98-107); Globulin 3.3 g/dL (2.4-3.5); Glucose 317 mg/dL (70-105); Magnesium 1.9 mg/dL (1.6-2.6); Potassium 3.4 mmol/L (3.5-5.1); Sodium 138 mmol/L (136-145)
[2025-01-14] MEDS ORDERED: cloNIDine 0.1 MG TAB ONE (23:30)
[2025-01-14] MEDS ORDERED: Gabapentin 100 MG CAP ONE (23:30)
[2025-01-14 23:31] LABS: Troponin I 0.135 ng/mL (< 0.028)
[2025-01-14] MEDS ORDERED: Acetaminophen 325 MG TAB ONE (23:35)
== END 2025-01-15 00:26 | disposition home or self-care (01) ==
LOC: MADERS 22:04
DX: J45.901 Unspecified asthma with (acute) exacerbation (principal); R07.89 Other chest pain; R79.89 Other specified abnormal findings of blood chemistry; E87.6 Hypokalemia; G47.00 Insomnia, unspecified; E87.3 Alkalosis; I50.9 Heart failure, unspecified; I25.10 Atherosclerotic heart disease of native coronary artery without angina pectoris; E11.9 Type 2 diabetes mellitus without complications; F17.220 Nicotine dependence, chewing tobacco, uncomplicated; Z95.5 Presence of coronary angioplasty implant and graft
CPT/HCPCS: 36415; 71046; 80053; 83735; 83880; 84484; 85025; 87428; 93005; 94760; 96372; J1100

== ENCOUNTER 2025-01-31 01:06 | Emergency (ER) | payer BC ==
[2025-01-31] MEDS ORDERED: Furosemide 40 MG (4 mL) VIAL ONE (01:53)
[2025-01-31 01:57] LABS: Hematocrit 38.9 % (42.0-52.0); Hemoglobin 11.4 g/dL (14.0-18.0); Mean Corpuscular Hemoglobin 23.8 pg (27.0-31.0); Mean Corpuscular Volume 81.1 fl (78.0-98.0); Platelet Count 656 10x3/uL (130-400); Red Blood Cell (RBC) Count 4.80 mill/uL (4.70-6.10); White Blood Cell (WBC) Count 9.8 10x3/uL (4.8-10.8)
[2025-01-31 02:05] LABS: ALT (SGPT) 18 U/L (Less than 45); AST (SGOT) 29 U/L (11-34); Albumin 3.8 g/dL (3.1-4.5); Alkaline Phosphatase 107 U/L (40-110); Anion Gap 20 mmol/L (10-20); BUN (Urea Nitrogen) 21 mg/dL (8.9-20.6); Bilirubin, Total 0.3 mg/dL (0.3-1.2); Calc. Creatinine Clearance 0 mL/min (70-130); Calcium 8.9 mg/dL (7.8-10.44); Carbon Dioxide 22 mmol/L (22-29); Chloride 100 mmol/L (98-107); Globulin 3.7 g/dL (2.4-3.5); Glucose 293 mg/dL (70-105); Sodium 136 mmol/L (136-145)
[2025-01-31 02:20] LABS: #Basophils 0.2 thou/uL (0.0-0.2); #Eosinophils 1.1 thou/uL (0.0-0.7); #Lymphocytes 2.1 thou/uL (1.20-3.40); #Monocytes 1.0 thou/uL (0.11-0.59); #Neutrophils 5.5 thou/uL (1.40-6.50); %Basophils 2.3 % (0.0-1.0); %Eosinophils 10.9 % (0.0-10.0); %Lymphocytes 21.1 % (21.0-51.0); %Monocytes 9.7 % (0.0-10.0); %Neutrophils 56.1 % (42.0-75.0); MDiff Complete? YES; Microcytosis SLIGHT = 6-15 cells (100X) (0-5/hpf); Platelet Adequacy Comment Appears Increased
[2025-01-31 02:26] LABS: Troponin I 0.646 ng/mL (< 0.028)
[2025-01-31 02:28] LABS: Potassium 4.7 mmol/L (3.5-5.1)
[2025-01-31] MEDS ORDERED: ALPRAZolam 0.5 MG TAB ONE (03:36)
[2025-01-31 04:25] LABS: Critical Call Chem Troponin I EMS.CLJ; Troponin I 0.714 ng/mL (< 0.028)
== END 2025-01-31 06:51 | disposition short-term general hospital (02) ==
LOC: MADERS 01:06 → SUATTDRO 01:06 → MADERS 06:51
PROVIDERS: ATTEND Family Medicine
DX: I50.9 Heart failure, unspecified (principal); F41.9 Anxiety disorder, unspecified; R79.89 Other specified abnormal findings of blood chemistry; I25.10 Atherosclerotic heart disease of native coronary artery without angina pectoris; E11.9 Type 2 diabetes mellitus without complications; I25.2 Old myocardial infarction; F17.290 Nicotine dependence, other tobacco product, uncomplicated; Z95.5 Presence of coronary angioplasty implant and graft
CPT/HCPCS: 71045; 80053; 83880; 84484; 85025; 93005; 94760; 96374; J1940

== ENCOUNTER 2025-02-07 07:42 | Emergency (ER) | payer BC ==
[2025-02-07 08:42] LABS: INR-International Normal Ratio 1.1; Prothrombin Time 13.9 sec (12.0-14.7)
[2025-02-07 08:43] LABS: PTT 36.8 sec (22.9-36.1)
[2025-02-07] MEDS ORDERED: Acetaminophen 500 MG TAB ONE (08:43)
[2025-02-07] MEDS ORDERED: Metoprolol Succinate XL 50 MG ER.TAB ONE (08:43)
[2025-02-07] MEDS ORDERED: Spironolactone 25 MG TAB ONE (08:44)
[2025-02-07] MEDS ORDERED: Aspirin Chewable 81 MG TAB ONE (08:44)
[2025-02-07] MEDS ORDERED: Furosemide 40 MG (4 mL) VIAL ONE (08:45)
[2025-02-07 08:53] LABS: ALT (SGPT) 15 U/L (Less than 45); AST (SGOT) 24 U/L (11-34); Albumin 4.4 g/dL (3.1-4.5); Alkaline Phosphatase 119 U/L (40-110); Anion Gap 20 mmol/L (10-20); BUN (Urea Nitrogen) 18 mg/dL (8.9-20.6); Bilirubin, Total 0.9 mg/dL (0.3-1.2); Calc. Creatinine Clearance 0 mL/min (70-130); Calcium 9.7 mg/dL (7.8-10.44); Carbon Dioxide 23 mmol/L (22-29); Chloride 100 mmol/L (98-107); Globulin 3.9 g/dL (2.4-3.5); Glucose 126 mg/dL (70-105); Potassium 4.1 mmol/L (3.5-5.1); Sodium 139 mmol/L (136-145)
[2025-02-07 08:57] LABS: Lipase 57 U/L (8-78); Magnesium 2.2 mg/dL (1.6-2.6)
[2025-02-07 09:00] LABS: Troponin I 0.367 ng/mL (< 0.028)
[2025-02-07] MEDS ORDERED: Iopamidol 370 76% 100 ML VIAL ONE (09:00)
[2025-02-07 09:03] LABS: #Basophils 0.2 thou/uL (0.0-0.2); #Eosinophils 1.1 thou/uL (0.0-0.7); #Lymphocytes 1.8 thou/uL (1.20-3.40); #Monocytes 0.9 thou/uL (0.11-0.59); #Neutrophils 4.9 thou/uL (1.40-6.50); %Basophils 2.3 % (0.0-1.0); %Eosinophils 12.3 % (0.0-10.0); %Lymphocytes 20.3 % (21.0-51.0); %Monocytes 10.3 % (0.0-10.0); %Neutrophils 54.8 % (42.0-75.0); Hematocrit 45.2 % (42.0-52.0); Hemoglobin 13.0 g/dL (14.0-18.0); Mean Corpuscular Hemoglobin 22.8 pg (27.0-31.0); Mean Corpuscular Volume 78.9 fl (78.0-98.0); Platelet Count 564 10x3/uL (130-400); Red Blood Cell (RBC) Count 5.73 mill/uL (4.70-6.10); White Blood Cell (WBC) Count 8.9 10x3/uL (4.8-10.8)
[2025-02-07] MEDS ORDERED: Enoxaparin 80 MG (0.8 mL) SYRINGE ONE (09:11)
[2025-02-07] MEDS ORDERED: Nitroglycerin 0.4 MG TAB 1 EACH ONE (09:11)
[2025-02-07] MEDS ORDERED: ALPRAZolam 0.5 MG TAB ONE (10:53)
[2025-02-07 11:47] LABS: Troponin I 0.353 ng/mL (< 0.028)
== END 2025-02-07 12:27 | disposition home or self-care (01) ==
LOC: MADERS 07:42
DX: I50.9 Heart failure, unspecified (principal); E11.621 Type 2 diabetes mellitus with foot ulcer; J45.909 Unspecified asthma, uncomplicated; L21.9 Seborrheic dermatitis, unspecified; Z79.82 Long term (current) use of aspirin; Z79.4 Long term (current) use of insulin; Z79.51 Long term (current) use of inhaled steroids
CPT/HCPCS: 71046; 71275; 74177; 80053; 83690; 83735; 83880; 84484; 85025; 85610; 85730; 86140; 93005; 94760; 96374; J1650; J1940; Q9967